=== PATIENT | male | born 1995 | race Caucasian/White ===

== ENCOUNTER → 2023-07-28 10:57 | Outpatient (BNVA) | payer OTHER, SELFPAY | PROVIDERS: Family Provider General Practice; Visit Provider Emergency Medicine | DX: M25.561 Pain in right knee (principal) | CPT/HCPCS: 73562 ==

== ENCOUNTER → 2023-10-20 13:56 | Outpatient (BNVA) | payer OTHER, SELFPAY | PROVIDERS: Family Provider General Practice; Visit Provider Emergency Medicine | DX: R10.9 Unspecified abdominal pain (principal); R11.0 Nausea; R10.11 Right upper quadrant pain | CPT/HCPCS: 81000 ==

== ENCOUNTER → 2024-02-03 13:48 | Outpatient (BNVA) | payer OTHER, SELFPAY | PROVIDERS: Family Provider General Practice; PCP Nurse Practitioner; Visit Provider Nurse Practitioner | DX: J02.9 Acute pharyngitis, unspecified (principal) | CPT/HCPCS: 87880 ==